=== PATIENT | female | born 1945 | race Caucasian/White ===

== ENCOUNTER 2017-11-20 21:21 | Inpatient (IN) | payer OTHER, MEDICAID ==
[~2017-11-20] VITALS: Ht 160 cm; Wt 75.7 kg
[~2017-11-20 21:21] MED LIST: ADVAIR 250-501 EACH INH; ASPIR 8181 MG PO; CIPRO250 M1 PO; COZAAR 25 MG TA25 M1 PO; FLONASE 0.05%50 MCG NASAL; HYDROCHLOROTHIA25 M1 PO; HYDROCODON-ACE1 EAC7 PO; LEXAPRO20 MG PO; SPIRIVA INH; VENTOLIN HFA 1818 GM INH; VITAMIN D3400 UNIT PO; ZANTAC 150MG T150 MG PO; ZOCOR20 MG PO; ZOFRAN4 MG PO
[2017-11-20 21:29] VITALS: BP 141/83
[2017-11-20 22:18] LABS: ABSOLUTE BASOPHILS 0.1 thou/uL (0.0-0.2); ABSOLUTE EOSINOPHILS 0.2 thou/uL (0.0-0.7); ABSOLUTE LYMPHOCYTES 2.3 thou/uL (0.8-5.3); ABSOLUTE MONOCYTES 0.4 thou/uL (0.0-1.2); ABSOLUTE NEUTROPHILS 5.5 thou/uL (1.6-8.1); BASOPHILS 0.7 %; HEMATOCRIT 39.9 % (37.0-47.0); HEMOGLOBIN 13.4 gm/dL (12.0-15.0); LYMPHOCYTES 27.8 %; MCH 29.6 pg (26.0-34.0); MCHC 33.6 g/dL (28.0-37.0); MCV 88.1 fL (80.0-100.0); MONOCYTES 4.6 %; NUCLEATED RBCS 0 /100WBC; PLATELET COUNT* 208 thou/uL (150-400); POLYS 64.9 %; RBC 4.53 mil/uL (4.20-5.00); RDW-CV 14.4 % (10.5-14.5); WBC 8.4 thou/uL (4.0-11.0)
[2017-11-20 22:23] LABS: ANION GAP 10 mmol/L (7-16); BUN 17 mg/dL (7-18); CHLORIDE 106 mmol/L (98-107); CO2 26 mmol/L (21-32); CREATININE 1.2 mg/dL (0.6-1.3); GLUCOSE 102 mg/dL (70-99); INR 1.1; POTASSIUM 3.4 mmol/L (3.5-5.1); PROTIME 10.6 Seconds (9.20-11.50); SODIUM 142 mmol/L (136-145)
[2017-11-20 22:34] LABS: ALBUMIN 3.5 g/dL (3.4-5.0); ALKALINE PHOSPHATASE 98 U/L (46-116); NT-PRO BRAIN NAT PEPTIDE 236 pg/mL (<300); SGOT 22 U/L (15-37); SGPT 35 U/L (30-65); TOTAL BILIRUBIN 0.6 mg/dL (<0.1-1.0); TOTAL PROTEIN 6.6 g/dL (6.4-8.2); TROPONIN-I LEVEL <0.06 ng/mL (<0.06)
[2017-11-21] VITALS (7 sets, daily range): BP systolic 103–149; BP diastolic 46–86
[2017-11-21 00:41] LABS: URINE BILIRUBIN NEGATIVE (Negative); URINE BLOOD 3+ (Negative); URINE CLARITY CLEAR; URINE COLOR YELLOW; URINE GLUCOSE-RANDOM NEGATIVE (Negative); URINE KETONES 1+ (Negative); URINE LEUKOCYTES-REFLEX 1+ (Negative); URINE NITRITE-REFLEX NEGATIVE (Negative); URINE PROTEIN NEGATIVE (Negative); URINE SPECIFIC GRAVITY 1.015 (1.005-1.030); URINE UROBILINOGEN 0.2 E.U./dl (0.2-1.0)
[2017-11-21 01:37] LABS: CASTS None Seen /LPF (None Seen); SQUAMOUS 4-10 Moderate /LPF (0-3)
[2017-11-21 01:38] LABS: BACTERIA-REFLEX 1-9 Few /HPF (None Seen); CRYSTALS None Seen /LPF (None Seen); URINE WBC-REFLEX 6-15 Few /HPF (0-5)
--- NOTE | 2017-11-21 03:28 | NUR ---
PATIENT RESTED IN BED. PATIENT HAD FATIGUE, NO ACUTE CHANGES. PATIENT DID NOT SHOW SIGNS OF DISTRESS. FALL PRECAUTIONS IN PLACE, BED ALARM ON, CALL LIGHT WITH IN REACH, HOURLY ROUNDING OBSERVED.
--- NOTE | 2017-11-21 09:40 | EKG ---
[place] [address] ELECTROCARDIOGRAM REPORT Name: PHILLY PAULINO Room: [address] ADM IN M.R.#: [id number] Admission: 11/20/17 Attend Phys: Munir Hardwick Discharge: Date of : 45 Report #: [id number] THIS REPORT FOR: //name// [facility] ED Test Date: 2017-11-20 Test Time: 22:08:58 Pat Name: PHILLY PAULINO Department: Room: [facility] Gender: F Computer Network And Systems Engineer: [id number] : 1945 Requested By: Claribel Rod Order Number: [id number] MD: Adair King Measurements Intervals [place] Rate: 106 P: 75 DE: 154 QRS: -58 QRSD: 110 T: 58 QT: 401 QTc: 533 Interpretive Statements Sinus tachycardia Incomplete RBBB and LAFB Consider right ventricular hypertrophy ST elevation, consider inferior injury Prolonged QT interval No previous ECG available for comparison Electronically Signed On 11-21-2017 9:40:15 CDT by Adair King [email or web address] <ELECTRONICALLY SIGNED> By: Adair King MD, FAC 11/21/17 0940 07 07 Adair King MD, [facility] /EPI
--- NOTE | 2017-11-21 10:07 | NUR ---
Pt is A&O. Pt states that she is presently homeless. Pt and dtr were staying at the [facility], and were not able to pay there rent, so they were kicked out approx 2 weeks ago. Pt states that they have been staying "here, there and everywhere," since being homeless. Pt states that her dtr is presently trying to find them a place to stay. Pt states that she gets her "check" around the or of the month. Pt states that her PCP is at [facility], but admits that she hasn't seen a Dr in a while. Pt uses a walker for mobility. No hx of HH or SNF. CM provided Pt with homeless community resources. Dtr to come to the hospital today. Following for disposition.
--- NOTE | 2017-11-21 14:32 | NUR ---
WOUND CARE NOTE: CONSULT RECEIVED FOR BLISTERS ON FEET. PATIENT NOTED WITH A BLISTERED AREA TO THE RIGHT FOOT AT PLANTAR SURFACE, EXTENDING LATERALLY. AREA MEASURES 0.5X4.5 PURULENT FILLED BLISTERED AREA. AREA IS TENDER TO TOUCH. ISIAH-WOUND SLIGHTLY INFLAMMED. PALPABLE PEDAL PULSES. DID NOT OBSERVE ANY BLISTERS TO THE LEFT FOOT. APPEARS THAT SOMETHING HAD BEEN AROUND HER FOOT, THERE IS BLANCHABLE REDNESS TO THE DORSAL ASPECT OF THE LEFT FOOT TOO. PATIENT ADMITS TO USING SOMETHING FROM [employer] TO HELP KEEP HER FOOT IN PLACE. RECOMMENDED TO PATIENT THAT SHE NOT USE THESE BECAUSE SHE NOW HAS THIS AREA TO HER FOOT. PATIENT COMMUNICATED UNDERSANDING. RECOMMEND BETADINE DAILY TO AREA NOTIFY WOUND COORDINATOR IF AREA WORSENS OFFLOAD
--- NOTE | 2017-11-21 14:40 | EKG ---
[place] [address] ELECTROCARDIOGRAM REPORT Name: JEFFERSON,PHILLY Pamela Room: [address] ADM IN M.R.#: [id number] Admission: 11/20/17 Attend Phys: Munir Hardwick Discharge: Date of : 45 Report #: [id number] THIS REPORT FOR: //name// [facility] ED Test Date: 2017-11-20 Test Time: 22:09:54 Pat Name: PHILLY PAULINO Department: Room: [address] Gender: F Stem Lead Former: [id number] : 1945 Requested By: Krishan Robert Order Number: [id number] Reading MD: Adair King Measurements Intervals [place] Rate: 103 P: 72 NC: 167 QRS: -53 QRSD: 139 T: 48 QT: 392 QTc: 513 Interpretive Statements Sinus tachycardia RBBB and LAFB ST elevation suggests acute pericarditis Compared to ECG 11/20/2017 22:08:58 Incomplete right bundle-branch block no longer present Myocardial infarct finding no longer present Prolonged QT interval no longer present ST (T wave) deviation still present Electronically Signed On 11-21-2017 14:40:28 CDT by Adair King [email or web address] <ELECTRONICALLY SIGNED> By: Adair King MD, [facility] 11/21/17 1440 08 08 Adair King MD, [facility] /EPI
--- NOTE | 2017-11-21 15:08 | 2DMMODE ---
[place] [address] 2 D/M-MODE ECHOCARDIOGRAM Name: PHILLY PAULINO Room: [address] IN [facility]#: [id number] Admission: 11/20/17 Attend Phys: Krishan Robert Discharge: Date of : 45 Date of Service: 11/21/17 1508 Report #: [id number] THIS REPORT FOR: //name// APPROVED REPORT Study performed: 11/21/2017 13:50:54 EXAM: Comprehensive 2D, Doppler, and color-flow Echocardiogram Patient Location: In-Patient Room #: [facility] Status: routine BSA: 1.79 HR: 87 bpm BP: 130/85 mmHg Rhythm: NSR Other Information Study Quality: Good Indications Cardiomyopathy AMS 2D Dimensions LVEF(%): 70.54 (>50%) IVSd: 8.37 (7-11mm) LVOT Diam: 22.49 (18-24mm) LVDd: 44.28 mm PWd: 9.25 (7-11mm) Ascending Ao: 37.37 (22-36mm) LVDs: 26.68 (25-40mm) Aortic Root: 37.17 mm Patel's LVEF: 70.54 % Volumes Left Atrial Volume (Systole) LA ESV Index: 25.80 mL/m2 Aortic Valve AoV Peak Rafi.: 1.21 m/s AO Peak Gr.: 5.83 mmHg LVOT Max P.04 mmHg AO Mean Gr.: 3.40 mmHg LVOT Mean P.99 mmHg LVOT Max V: 1.00 m/s AO V2 VTI: 27.85 cm LVOT Mean V: 0.65 m/s NOELLE (VTI): 2.91 cm2 LVOT V1 VTI: 20.41 cm AI Alpine: 2.50 m/s2 AI PHT: 462.78 [place] [address] 2 D/M-MODE ECHOCARDIOGRAM Name: PHILLY PAULINO Room: [address] IN .R.#: [id number] Admission: 11/20/17 Attend Phys: Krishan Robert Discharge: Date of : 45 Date of Service: 11/21/17 1508 Report #: [id number] Mitral Valve E/A Ratio: 0.78 MV Decel. Time: 154.22 ms MV E Max Rafi.: 0.73 m/s MV PHT: 44.73 ms MVA (PHT): 4.92 cm2 TDI E/Lateral E': 5.62 E/Medial E': 6.64 Medial E' Rafi.: 0.11 m/s Lateral E' Rafi.: 0.13 m/s Pulmonary Valve PV Peak Rafi.: 0.72 m/s PV Peak Gr.: 2.10 mmHg Tricuspid Valve RAP Estimate: 5.00 mmHg TR Peak Gr.: 18.28 mmHg RVSP: 23.28 mmHg PA Pressure: 23.28 mmHg Left Ventricle The left ventricle is normal size. There is normal LV segmental wall motion. There is normal left ventricular wall thickness. Left ventricular systolic function is normal. The left ventricular ejection fraction is within the normal range. No left ventricle thrombus noted on this study. LVEF is 55-60%. Grade I - abnormal relaxation pattern. Right Ventricle The right ventricle is normal size. The right ventricular systolic function is normal. Atria The left atrium size is normal. The right atrium size is normal. Aortic Valve The aortic valve is normal in structure. Mild to moderate aortic regurgitation. There is no aortic valvular stenosis. Mitral Valve The mitral valve is normal in structure. Trace mitral regurgitation. No evidence of mitral valve stenosis[place] [address] 2 D/M-MODE ECHOCARDIOGRAM Name: JEFFERSON,PHILLY Pamela Room: [address] IN ..#: [id number] Admission: 11/20/17 Attend Phys: Krishan Robert Discharge: Date of : 45 Date of Service: 11/21/17 1508 Report #: [id number] The tricuspid valve is normal in structure. Mild tricuspid regurgitation. No pulmonary hypertension. Pulmonic Valve The pulmonary valve is normal in structure. There is no pulmonic valvular regurgitation. Great Vessels The aortic root is normal in size. IVC is normal in size and collapses with >50% inspiration Pericardium There is no pericardial effusion. <Conclusion> LVEF is 55-60%. There is normal LV segmental wall motion. Grade I - abnormal relaxation pattern. There is no aortic valvular stenosis. Mild to moderate aortic regurgitation. Trace mitral regurgitation. No left ventricle thrombus noted on this study. <ELECTRONICALLY SIGNED> By: Adair King MD, FACC 11/21/17 1508 1508 1508 Adair King MD, FACC /INF
--- NOTE | 2017-11-21 16:42 | NUR ---
PATIENT A&OX4, FORGETFUL. ROOM AIR, IV LEFT WRIST SALINE LOCK. UP WITH ASSISTX1 WALKER, UNSTEADY GAIT. NO C/O PAIN/N/V. YEAST TO GROIN AREA, MYSTATIN POWDER APPLIED. REDNESS TO RIGHT ANKLE AND PLANTAR OF RIGHT FOOT. PATIENT HOMELESS, ALONG WITH DAUGHTER. IN THE MIDDLE OF FINDING A NEW PLACE. DAUGHTER EXPRESSED THE NEED AND HELP TO FIND PLACEMENT FOR PATIENT. NO OTHER CONCERNS AT THIS TIME. APPROPRIATE AND COOPORATIVE WITH CARE.
[2017-11-22] VITALS: BP 117/69
[2017-11-22 03:54] VITALS: BP 118/64
--- NOTE | 2017-11-22 07:15 | NUR ---
CHANGE OF SHIFT BEDSIDE REPORT GIVEN PATIENT SEEN IN BED ASLEEP ASSUMED PATIENT CARE
--- NOTE | 2017-11-22 07:52 | NUR ---
Pt reports she slept well overnight. Pt's daughter stayed in pt's room overnight. VSS. No complaints. Will continue to monitor.
[2017-11-22 08:00] VITALS: BP 130/82
[2017-11-22 12:15] VITALS: BP 122/65
[2017-11-22] MEDS ORDERED: NORCO 5-325 TA1 EACH PO (13:44)
[2017-11-22] MEDS ORDERED: IBUPROFEN200 M1 PO (13:45)
[2017-11-22] MEDS ORDERED: CEFDINIR300 MG PO (13:48)
[2017-11-22 16:25] VITALS: BP 112/67
--- NOTE | 2017-11-22 17:49 | NUR ---
PATIENT LAYING IN BED, NAPPING A AND O X 3, FORGETFUL TREMORS/SHAKES AT TIMES SR/ST RA O2 SATS MID 90S GOOD APPETITE LAST BM UNKNOWN UO ADEQUATE, UNMEASURED UP WITH 1 ASSIST IV L HAND 20 GA DENIES PAIN TODAY R FOOT BLISTER, R GROIN REDNESS/YEAST CALL LIGHT IN REACH AND INSTRUCTION GIVEN AND FOLLOWED
[2017-11-22 20:33] VITALS: BP 115/63
[2017-11-23] VITALS: BP 135/78
[2017-11-23 04:00] VITALS: BP 106/61
--- NOTE | 2017-11-23 06:33 | NUR ---
Pt reports she rested well overnight. VSS. C/O bilat hip pain, which she states is chronic due to past injury. Received order for Tylenol. Otherwise no complaints. Pt's dtr stayed in room overnight. Will continue to monitor.
[2017-11-23 08:00] VITALS: BP 109/61
--- NOTE | 2017-11-23 09:17 | NUR ---
Discussed disposition with Pt. Informed that Pt will likely not qualify for residential and informed that her dtr would not be able to go with her. Discussed possible LTC placement, Pt stated "oh no, I will never go to a LTC." Pt stated that her dtr had talked to a lady, that should be able to assist with providing them with a staff place to stay. Dtr out of the room at this time. CM to continue following.
[2017-11-23] MEDS ORDERED: BACTRIM DS TAB1 EACH PO (11:25)
--- NOTE | 2017-11-23 11:36 | NUR ---
RECEIVED REPORT FROM ANNEMARIE PEARSON. ASSUMED CARE OF PT AROUND 0730. PT A&O X4. VSS. O2 SAT 94% ON RA. FISCAL CLERK IN PLACE TRACING SR WITH BBB. AM ASSESSMENT AND VITALS COMPLETED CHARTED. PT REPORTS BILATERAL HIP PAIN AND RECEIVED PO PAIN MEDICATION WITH LITTLE TO NO RELIEF. PT STATES "MY HIPS HURT BUT IT'S OKAY RIGHT NOW, I DON'T NEED ANYTHING ELSE". PT REPOSITIONING SELF OFTEN IN BED AND HAS BEEN ABLE TO WORK WITH THERAPIES THIS SHIFT. AMBULATING WITH A WALKER WITH MINIMAL ASSIST X1. PT UP TO BATHROOM WITH ASSIST X1 THIS AM TO VOID, STRESS INCONTINENCE NOTED. PT CLEANED. IV TO LEFT HAND INTACT AND SALINE LOCKED. DAUGHTER AT BEDSIDE. PT EATING AND DRINKING WITHOUT ISSUE. PLAN IS FOR PT TO DISCHARGE TODAY. CASE MANAGEMENT WORKING WITH PT TO HELP ARRANGE DISCHARGE. PT CURRENTLY RESTING IN BED. CALL LIGHT IS WITHIN REACH, HOURLY ROUNDING PERFORMED. FALL PRECAUTIONS IN PLACE. WCTM.
[2017-11-23 12:43] VITALS: BP 115/64
[2017-11-23 15:55] VITALS: BP 136/86
--- NOTE | 2017-11-23 18:30 | NUR ---
PT REMAINS A&O X4. VSS. O2 SAT >90% ON RA. PEDIATRIC NURSE PRACTITIONER REMAINS IN PLACE TRACING SR. DISCHARGE ON HOLD DUE TO PT UNABLE TO FIND A SAFE PLACE TO GO - ALL HOMELESS SHELTERS FULL, PT REFUSING PRISON CARE, PT DOES NOT QUALIFY FOR REHAB, AND PT HAS NO FAMILY THAT CAN TAKE HER IN. DR BETHEA AWARE OF SITUATION. WILL PLAN FOR DC TOMORROW. IV INTACT AND SALINE LOCKED. PT RECEIVED PO PAIN MEDICATION FOR BILATERAL HIP PAIN THIS AFTERNOON AND OBTAINED RELIEF. PT EATING AND DRINKING WITHOUT ISSUE. PT VOIDING WITHOUT ISSUE. DAUGHTER HAS REMAINED AT BEDSIDE. PT CURRENTLY RESTING IN BED. FALL PRECAUTIONS IN PLACE. CALL LIGHT IS WITHIN REACH. HOURLY ROUNDING PERFORMED.
[2017-11-23 20:27] VITALS: BP 127/71
[2017-11-24] VITALS: BP 120/73
[2017-11-24 04:00] VITALS: BP 123/78
--- NOTE | 2017-11-24 07:02 | NUR ---
Pt reports she rested well overnight. C/O pain to left flank/side at beginning of shift; Tylenol given. Reports minimal relief. VSS. Dtr stayed in room overnight. Will continue to monitor.
[2017-11-24 08:00] VITALS: BP 134/77
--- NOTE | 2017-11-24 12:21 | NUR ---
CM contacted [employer] this morning, they remain full and asked that they will contacted [facility] at 6pm. CM contacted several other homeless options, but none offer immediate assistance, an assessment/screening is required. MI spoke with Director of regarding situation. Pt plans to return to the [facility], once they received their monies on Monday. Following.
--- NOTE | 2017-11-24 13:35 | NUR ---
RECEVIED REPORT FROM ANNEMARIE PEARSON. ASSUMED CARE OF PT AROUND O730. PT A&O X 3-4, FORGETFULL AT TIMES. VSS. O2 SAT 93% ON RA. TRAVEL CLERK IN PLACE THIS AM TRACING SR, PT HAS SINCE BEEN CHANGED TO MED SURGE STATUS. AM ASSESSMENT AND VITALS COMPLETED CHARTED. IV TO RIGHT FA INTACT. MEDS PER EMAR. PT COMPLAINED OF BILATERAL HIP PAIN THIS AM THAT HAS BEEN MANAGED WITH PO PAIN MEDICATION WITH RELIEF. DAUGHTER AT BEDSIDE. DISCHARGE DELAYED DUE TO PT'S HOMELESS STATUS. PT HAS BEEN UP TO THE BATHROOM WITH WALKER AND ASSIST X1 FREQUENTLY TO VOID. PT EATING AND DRINKING WITHOUT ISSUE. PT CURRENTLY SITTING UP IN BEDSIDE CHAIR WATCHING TV. FALL PRECAUTIONS IN PLACE. CALL LIGHT IS WITHIN REACH, HOURLY ROUNDING PERFORMED. WCTM.
--- NOTE | 2017-11-24 15:47 | NUR ---
RECEIVED CALL FROM [facility]. THEY HAVE RECEIVED AUTH FROM [facility] FOR SNF AND CAN ACCEPT PT TODAY. THEY ARE WILLING FOR PT'S DTR TO COME TO STAY ALSO AND UNDERSTAND THE FINANCIAL LIMITATION FOR DTR TO FIND HOUSING. MET [facility] PT AND DTR TO DISCUSS, IN AGREEMENT. DTR STATES THAT ONCE PT GETS HER SS CHECK ON THE SHE HAS HELP FINDING HOUSING, PLANS TO GO TO A [facility]EL. EXPLAINED TO PT THAT SHE WOULD BE GOING TO A REHAB AND INSURANCE WOULD PAY LONG SHE WAS 'GETTING STRONGER'. PT UNDERSTOOD AND AGREES. CALL TO DR BETHEA TO GET SNF ORDER. CHART COPIED. RN GIVEN NUMBER FOR REPORT. [facility]ON[facility] TO SET UP W/C VAN FOR 5-6PM
[2017-11-24 16:37] VITALS: BP 134/77
--- NOTE | 2017-11-24 17:51 | NUR ---
CASE MANAGEMENT ABLE TO ARRANGE DISCHARGE TO [facility] FOR REHAB. INSURANCE APPROVED. CHART COPIED AND PLACED IN ENVELOPE FOR FACILITY. DISCHARGE SUMMARY COMPLETED AND PLACED IN ENVELOPE WELL. SCRIPT SENT. PT AGREEABLE TO TRANSFER TO FACILITY. IV REMOVED. DC PICTURE TAKEN OF BOTTOM OF PT'S RIGHT FOOT. WOUND TO RIGHT LOWER EXTREMITY IS HEALED, NO PICTURE NEEDED. ALL BELONGINGS GATHERED AND SENT WITH THE PT. DAUGHTER GOING WITH PT TO FACILITY. VSS AT TIME OF DC. THIS RN CALLED [facility] SEVERAL TIMES TO GIVE REPORT, BUT NO ONE EVER ANSWERED THE PHONE AND THERE WAS NO MESSAGE MACHINE. WILL CONTINUE TO TRY TO CALL REPORT UNTIL END OF SHIFT. PT LEFT UNIT WITH TRANSPORTER IN WC. PT LEFT FACILITY IN WHEELCHAIR VAN WITH TRANSPORTER AND DAUGHTER. PACKET GIVEN TO TRANSPORTER FOR [facility].
--- NOTE | 2017-11-27 10:36 | NUR ---
CM hotlined Pt and dtr for concerns of inability to adequately care for themselves. Hotline was accepted and local agency will investigate.
--- NOTE | 2017-11-30 12:34 | CON ---
[address] [address] CONSULTATION Name: JEFFERSONPHILLY Pamela Room: [address] IN M.R.#: [id number] Admission: 11/20/17 Attend Phys: Munir Hardwick Discharge: 11/24/17 Date of : 45 Report #: [id number] THIS REPORT FOR: //name// CC: Krishan Morris DATE OF SERVICE: 11/21/2017 HISTORY OF PRESENT ILLNESS: This is a 72-year-old female patient who is a very poor historian. She indicates that she has double vision. She believes it is going on for 2 weeks. She indicates that it started spontaneously without any trauma. She described it as moderately severe, but does not know what makes it better or worse. She does not know if it is worse in one direction or another. She does not know if it is better when she closes one eye or not, but she believes that is the case. REVIEW OF SYSTEMS: Positive for multiple problems, which include chronic low back pain, hypertension, high cholesterol and COPD. She denies any prior history of stroke. She indicates her appetite has been poor. She does have a history of hypertension, but she does not know what her blood pressure has been recently. Her last blood pressure here was 130/85. I carried out 14-point review of system and she did not complain of any cardiac, respiratory, ENT, GI, , musculoskeletal, constitutional, dermatological, hematological, psychiatric, throat, allergic symptoms associated with present symptomatology and which has not been described as above. PAST MEDICAL HISTORY: Negative for any stroke. FAMILY HISTORY: Negative for any early age stroke. SOCIAL HISTORY: She denies the use of alcohol. PHYSICAL EXAMINATION: The patient's examination indicate she is alert. She is responsive. She appeared to be oriented. She is very apathetic and did not cooperate much with the examination. She believes her memory and fund of knowledge is diminished, but is at baseline. Speech looks unremarkable. Cranial nerve examination 2-12 was carried out and sometime it looks like she may have some nystagmus, but that examination is not very good because she keeps closing her eyes and will not keep it open. She moves all four extremities. Reflexes are symmetrical. Tone is symmetrical. I tried to do the position sense either she does not understand the instructions or cannot tell me the position sense. There is no meningeal sign. There is no cerebellar sign. I tried to look at the fundus, but she will not keep her eyes open for me to look at it. She is reasonably well-developed individual who does not have any dysmorphic features of eyes, ears and face. She has double vision, but her hearing is adequate. She has no thyroid mass or carotid bruit. Pulses are [facility] [address] [place] [address] CONSULTATION Name: PHILLY PAULINO Room: [address]#: [id number] Admission: 11/20/17 Attend Phys: Munir Hardwick Discharge: 11/24/17 Date of : 45 Report #: [id number] difficult to feel. She has no edema, cyanosis or jaundice. Cardiac examination is unremarkable. Respiratory examination is unremarkable. Blood pressure is 130/85, respirations 20, pulse is 98 and temperature is 98.2. LABORATORY DATA: White count is 8.4. Sodium is 142. She did have an MRI of the brain, which was reviewed and that does not show any abnormality, which can explain the patient's symptom. IMPRESSION: Diplopia of unknown etiology at the moment. I will give her some thiamine and see if she improves. She needs acetylcholine receptor antibody, but I cannot send that test because of hospital regulation at the inpatient. She has to have that as an outpatient and that will be to evaluate for myasthenia gravis. I will check a sed rate and NIA in this patient. RECOMMENDATIONS: 1. Thiamine. 2. Sed rate. 2. Acetylcholine receptor antibody, which need to be done as an outpatient because of hospital policy. 4. She will need a neuro ophthalmological evaluation as an outpatient too. Thank you very much for this referral and if you have any question, please feel free to contact me. <ELECTRONICALLY SIGNED> By: Shiva Chung MD 11/30/17 1234 1335 [id number] Chung MD /nt
== END 2017-11-24 17:50 | DRG 689 ==
LOC: M.ERS 21:21 → M.TBA-ER 23:41 → M.2W 23:41
PROVIDERS: Emergency Medicine; ADMIT Internal Medicine
DX: N39.0 Urinary tract infection, site not specified (principal); G93.41 Metabolic encephalopathy; E86.0 Dehydration; J44.9 Chronic obstructive pulmonary disease, unspecified; I10 Essential (primary) hypertension; E87.6 Hypokalemia; G89.29 Other chronic pain; M54.9 Dorsalgia, unspecified; K21.9 Gastro-esophageal reflux disease without esophagitis; E78.00 Pure hypercholesterolemia, unspecified; B35.8 Other dermatophytoses; Z59.0 Homelessness; Z87.891 Personal history of nicotine dependence; Z79.51 Long term (current) use of inhaled steroids; Z79.82 Long term (current) use of aspirin; Z79.899 Other long term (current) drug therapy